=== PATIENT | female | born 1980 | race Two or more races ===

== ENCOUNTER 2019-10-16 07:13 | Emergency (ER) | payer OTHER ==
[~2019-10-16] VITALS: Ht 149.9 cm; Wt 68.0 kg
[2019-10-16 07:28] VITALS: BP 102/63
[2019-10-16] MEDS ORDERED: Tetanus/Diptheria/Pertussis IM ONE (08:00)
--- NOTE | 2019-10-16 08:26 | Diagnostic Imaging Report ---
EXAM: XR Left Hand Complete, 3 Views CLINICAL HISTORY: TRAUMA TECHNIQUE: Frontal, lateral and oblique views of the left hand. COMPARISON: No relevant prior studies available. FINDINGS: Bones/joints: Unremarkable. No visible displaced fracture. No dislocation. No osseous erosions. Mild degenerative narrowing at the radiocarpal joint. Remaining visualized joint spaces appear unremarkable. Soft tissues: Unremarkable. No radiopaque foreign body. No soft tissue gas lucencies. IMPRESSION: No acute radiographic findings.
--- NOTE | 2019-10-16 08:29 | Diagnostic Imaging Report ---
EXAM: XR Chest, 1 View CLINICAL HISTORY: TRAUMA TECHNIQUE: Frontal view of the chest. COMPARISON: No relevant prior studies available. FINDINGS: Lungs: Unremarkable. The lungs appear clear. No focal consolidation. Pleural space: Unremarkable. The costophrenic angles are sharp. No visible pneumothorax. Heart: Unremarkable. No cardiomegaly. Mediastinum: Unremarkable. Bones/joints: Unremarkable. IMPRESSION: No acute findings.
[2019-10-16] MEDS ORDERED: IBUPROFEN600 M1 ORAL (08:31)
[2019-10-16] MEDS ORDERED: ROBAXIN-750750 MG PO (08:31)
[2019-10-16 09:00] VITALS: BP 110/68
--- NOTE | 2019-10-16 10:01 | Emergency Room Report ---
History of Present Illness General Chief Complaint: Multiple Trauma/Fall Source: Patient Present Illness HPI Patient presents after a fall just prior to arrival patient reports that she was turning and there was a carpet that she tripped on and fell She was holding something and as she fell she also lacerated her left index finger Patient has pain essentially diffusely in the upper and lower back bilateral knees denies any shortness of breath She does have pain to the left index finger as well Patient is ambulatory denies any focal weakness denies any visual changes or lapse of consciousness pain is 6 out of 10 Mainly both knees upper shoulders and mid back area Allergies: Coded Allergies: ASPIRIN (Verified Allergy, Unknown, 10/16/19) COVID-19 Screening Contact w/high risk pt: No Recent Travel to affected area: No Experienced COVID-19 symptoms?: No COVID-19 Testing performed CORRECTIONAL PROGRAM SPECIALIST: No Patient History Past Medical History: see triage record Last Menstrual Period: 08/2019 Reviewed Nursing Documentation: PMH: Agreed; PSxH: Agreed Nursing Documentation-PMH Past Medical History: No Stated History Review of Systems All Other Systems: negative except mentioned in HPI Physical Exam Vital Signs Date Time Temp Pulse Resp B/P (MAP) Pulse Ox O2 Delivery O2 Flow Rate FiO2 10/16/19 07:18 98.2 65 16 102/63 (76) 99 Room Air Sp02 EP Interpretation: reviewed, normal General Appearance: no apparent distress, alert Head: normocephalic, atraumatic Eyes: bilateral eye PERRL, bilateral eye EOMI ENT: hearing grossly normal, EOM grossly intact Neck: supple, no bony tend Respiratory: lungs clear, no respiratory distress, no retraction Cardiovascular #1: regular rate, rhythm Gastrointestinal: non tender, soft Genitourinary: no CVA tenderness Musculoskeletal: other - Patient has approximately quarter centimeter skin avulsion, superficial laceration mid palmar aspect of the left index finger. She has some discomfort paraspinal throughout the thoracic region no midline step-off Neurologic: alert, oriented x3 Psychiatric: normal inspection Skin: other - As above Lymphatic: no adenopathy Procedures Splinting Splinting : Consent: Verbal Location: Left index finger Pre-Made Type: metal Splint: Finger splint Pre-Proc Neuro Vasc Exam: normal Post-Proc Neuro Vasc Exam: normal Patient Tolerated: Well Complications: None Laceration/Wound Repair Laceration/Wound Repair : Consent: Verbal Wound Location: upper extremity Wound's Depth, Shape: superficial Wound Explored: clean Betadine Prep?: Yes Wound Debrided: minimal Wound Repaired With: Dermabond Patient Tolerated: Well Complications: None Progress The wound was irrigated and cleansed thoroughly after this 3 separate layers of Dermabond was applied this provides appropriate coverage. 1 Steri-Strip was applied on top after full drying effect And the finger was placed in a splint Medical Decision Making Diagnostic Impression: Primary Impression: fall Additional Impressions: skin avulsion contusions ER Course Given the above history and presentation patient had x-ray imaging of the chest obtained no obvious pneumothorax patient is ambulatory my consideration for acute fractures in the back is low Patient will have initial conservative follow-up with pain medication and muscle relaxers she does have limited intervention as far as standing and walking Also limited use of her left hand for the next 3 days and will require close follow-up with Worker's Comp. physician Chest X-Ray Diagnostic Results Chest X-Ray Diagnostic Results : Chest X-Ray Ordered: Yes # of Views/Limited/Complete: 1 View Indication: Chest Pain EP Interpretation: Yes Interpretation: no consolidation, no effusion, no pneumothorax Impression: No acute disease Electronically Signed by: Laine Cervantes DO Other X-Ray Diagnostic Results Other X-Ray Diagnostic Results : X-Ray ordered: left hand # of Views/Limited Vs Complete: 3 View Indication: Pain EP Interpretation: Yes Interpretation: no dislocation, no soft tissue swelling, no fractures Impression: No acute disease Electronically Signed by: Laine Cervantes DO Last Vital Signs Date Time Temp Pulse Resp B/P (MAP) Pulse Ox O2 Delivery O2 Flow Rate FiO2 10/16/19 09:00 98.2 78 19 110/68 100 Room Air Status: improved Disposition: HOME, SELF-CARE Condition: Improved Scripts Methocarbamol* (ROBAXIN-750*) 750 Mg Tablet 750 MG PO TID, #21 TAB 0 Refills Prov: Laine Cervantes DO 10/16/19 Ibuprofen* (MOTRIN*) 600 Mg Tablet 600 MG ORAL Q8H PRN for FOR PAIN, #20 TAB 0 Refills Prov: Laine Cervantes DO 10/16/19 Referrals: NON PHYSICIAN (PCP) Your designated Worker's Comp. Patient Instructions: Laceration Care, Adult, Contusion, [id number] Additional Instructions: Patient is provided with the discharge instructions notified to follow up with primary doctor in the next 2-3 days otherwise return to the er with any worsening symptoms. Please note that this report is being documented using [employer] technology. This can lead to erroneous entry secondary to incorrect interpretation by the dictating instrument. Laine Cervantes DO Oct 16, 2019 10:01
== END 2019-10-16 09:00 | disposition home or self-care (01) ==
LOC: EMR 07:25
DX: S61.211A Laceration without foreign body of left index finger without damage to nail, initial encounter (principal); W01.0XXA Fall on same level from slipping, tripping and stumbling without subsequent striking against object, initial encounter; Y92.9 Unspecified place or not applicable; Z88.6 Allergy status to analgesic agent; M25.562 Pain in left knee; M25.561 Pain in right knee; T14.90XA Injury, unspecified, initial encounter; Z23 Encounter for immunization; M25.512 Pain in left shoulder; M25.511 Pain in right shoulder; M54.9 Dorsalgia, unspecified
CPT/HCPCS: 71045; 90471; 90715; 99284